=== PATIENT | female | born 1965 | race American Indian/Alaskan Native ===

== ENCOUNTER 2017-05-10 00:31 | Emergency (ER) | payer OTHER ==
[2017-05-10 02:31] LABS: Basophils % (Auto) 0.6 % (0.0-1.8); Eosinophils % (Auto) 2.9 % (0.0-4.3); Hematocrit 36.8 % (30.3-42.9); Mean Corpuscular HGB Conc 33 % (30-34); Mean Corpuscular Hemoglobin 29 pg (28-32); Mean Corpuscular Volume 90 fl (79-97); Platelet Count 254 K/mm3 (140-440); Red Blood Count 4.09 M/mm3 (3.65-5.03); Red Cell Distribution Width 14.1 % (13.2-15.2); White Blood Count 11.8 K/mm3 (4.5-11.0)
[2017-05-10 05:08] VITALS: BP 132/82
[2017-05-10] MEDS ORDERED: NACL 0.9% 1000 ML 1,000 ML IV ONE (06:43)
[2017-05-10] MEDS ORDERED: AFRIN NS ONE (06:43)
--- NOTE | 2017-05-10 06:45 | Emergency Department Report ---
ED ENT HPI - General Chief complaint: Nosebleed Stated complaint: SEVERE NOSE BLEED Time Seen by Provider: 05/10/17 06:42 Source: patient Mode of arrival: Ambulatory Limitations: No Limitations - History of Present Illness MD complaint: epistaxis -: Gradual Location: nose Consistency: constant Improves with: pressure, cold therapy Worsens with: other (after sneezing) Context-Epistaxis: history of similar Associated Symptoms: rhinorrhea - Related Data Previous Rx's Medication Instructions Recorded Last Taken Type Carvedilol [Coreg] 12.5 mg PO BID #60 tablet 05/10/17 Unknown Rx predniSONE [Deltasone] 10 mg PO QDAY #60 tab 05/10/17 Unknown Rx Allergies Allergy/AdvReac Type Severity Reaction Status Date / Time No Known Allergies Allergy Verified 05/10/17 00:56 ED Dental HPI - General Chief complaint: Nosebleed Stated complaint: SEVERE NOSE BLEED Time Seen by Provider: 05/10/17 06:42 Source: patient Mode of arrival: Ambulatory Limitations: No Limitations - Related Data Previous Rx's Medication Instructions Recorded Last Taken Type Carvedilol [Coreg] 12.5 mg PO BID #60 tablet 05/10/17 Unknown Rx predniSONE [Deltasone] 10 mg PO QDAY #60 tab 05/10/17 Unknown Rx Allergies Allergy/AdvReac Type Severity Reaction Status Date / Time No Known Allergies Allergy Verified 05/10/17 00:56 ED Review of Systems ROS: Stated complaint: SEVERE NOSE BLEED Other details as noted in HPI Comment: All other systems reviewed and negative ED Past Medical Hx - Past Medical History Previous Medical History?: Yes Hx Hypertension: Yes Additional medical history: SARCODOSIS - Surgical History Past Surgical History?: Yes Hx Internal Defibrillator: Yes - Social History Smoking Status: Current Some Day Smoker Substance Use Type: Alcohol - Medications Home Medications: Home Medications Medication Instructions Recorded Confirmed Last Taken Type Carvedilol [Coreg] 12.5 mg PO BID #60 tablet 05/10/17 Unknown Rx predniSONE [Deltasone] 10 mg PO QDAY #60 tab 05/10/17 Unknown Rx ED Physical Exam - General Limitations: No Limitations General appearance: alert, in no apparent distress - Head Head exam: Present: atraumatic, normocephalic - Eye Eye exam: Present: normal appearance - ENT ENT exam: Present: normal exam, normal orophraynx, mucous membranes moist, TM's normal bilaterally, normal external ear exam, other (no active bleeding seen on either nostril). Absent: mucous membranes dry - Neck Neck exam: Present: normal inspection - Respiratory Respiratory exam: Present: normal lung sounds bilaterally. Absent: respiratory distress - Cardiovascular Cardiovascular Exam: Present: regular rate, normal rhythm. Absent: systolic murmur, diastolic murmur, rubs, gallop - GI/Abdominal GI/Abdominal exam: Present: soft, normal bowel sounds - Extremities Exam Extremities exam: Present: normal inspection - Back Exam Back exam: Present: normal inspection - Neurological Exam Neurological exam: Present: alert, oriented X3 - Psychiatric Psychiatric exam: Present: normal affect, normal mood - Skin Skin exam: Present: warm, dry, intact, normal color. Absent: rash ED Course Vital Signs 05/10/17 05/10/17 05/10/17 00:57 01:23 05:07 Temperature 97.8 F Pulse Rate 101 H 76 92 H Respiratory 20 16 16 Rate Blood Pressure 194/103 Blood Pressure 166/93 132/82 [Left] O2 Sat by Pulse 97 95 100 Oximetry ED Medical Decision Making - Lab Data Result diagrams: 05/10/17 01:38 - Medical Decision Making patient doing well, no active bleeding since 6 am , will dc and follow up as needed with ENT, will refill her meds too. Critical care attestation.: If time is entered above; I have spent that time in minutes in the direct care of this critically ill patient, excluding procedure time. ED Disposition Clinical Impression: Epistaxis Disposition: DC-01 TO HOME OR SELFCARE Is pt being admited?: No Does the pt Need Aspirin: No Condition: Good Instructions: Epistaxis (ED) Prescriptions: Carvedilol [Coreg] 12.5 mg PO BID #60 tablet predniSONE [Deltasone] 10 mg PO QDAY #60 tab Referrals: PRIMARY CARE,MD [Primary Care Provider] - 3-5 Days Forms: Work/School Release Form(ED) Time of Disposition: 08:10
== END 2017-05-10 08:52 | disposition home or self-care (01) ==
LOC: ED 00:31
DX: R04.0 Epistaxis (principal); I10 Essential (primary) hypertension; F17.200 Nicotine dependence, unspecified, uncomplicated
CPT/HCPCS: 36415; 85025; 86850; 86900; 86901; 99283